=== PATIENT | female | born 1985 | race African-American/Black ===

== ENCOUNTER → 2019-01-26 | Outpatient (CLI) | payer OTHER ==
--- NOTE | 2019-01-26 15:24 | Diagnostic Imaging Report ---
TRANSVAGINAL PELVIC ULTRASOUND TECHNIQUE: Transvaginal ultrasound imaging of the pelvis was performed. COMPARISON: None available. INDICATION: Missed LMP: 11/11/2018 FINDINGS: UTERUS: The uterus measures 7.8 x 4.2 x 8.0 cm. Examination of the uterus reveals a single gestational sac measuring 5.1 x 2.3 x 4.6 cm with crown-rump length of 2.7 cm (estimated gestational age 9 weeks 3 days). Yolk sac diameter of 0.5 cm. heart rate is not detected. 1.6 x 1 0.4, 1.6 hypoechoic structure at the uterine fundus, possibly a fibroid. OVARIES/ADNEXA: The right ovary measures 2.3 x 2.3 x 3.2 cm and contains a 1.7 x 1.4 x 1.9 cm corpus luteum. The left ovary is not visualized. PELVIS: No free fluid. IMPRESSION: Findings compatible with nonviable intrauterine . Signed by: Lynda Castañeda MD on 01/26/2019 3:21 PM
== END ==
LOC: US 13:28
PROVIDERS: ATTEND Obstetrics & Gynecology
DX: O02.1 Missed abortion (principal)
CPT/HCPCS: 76830